=== PATIENT | female | born 1945 | race Two or more races ===

== ENCOUNTER 2023-06-17 18:30 | Emergency (ER) | payer OTHER ==
[~2023-06-17] VITALS: Ht 162.6 cm; Wt 82.6 kg
[2023-06-17] MEDS ORDERED: LEVOTHYROXINE25 MCG PO (18:57)
[2023-06-17] MEDS ORDERED: GLIMEPIRIDE1 M1 PO (18:57)
[2023-06-17] MEDS ORDERED: TRADJENTA5 MG PO (18:57)
[2023-06-17] MEDS ORDERED: AMLODIPINE-OLM1 EAC2 (18:58)
[2023-06-17] MEDS ORDERED: COZAAR25 MG PO (18:58)
[2023-06-17] MEDS ORDERED: EZALLOR SPRINKLE5 MG PO (18:58)
[2023-06-17] MEDS ORDERED: ONDANSETRON HCL 2 MG/ML VIAL IV ONE (19:15)
[2023-06-17] MEDS ORDERED: MECLIZINE HCL 25 MG TABLET PO ONE (19:15)
[2023-06-17] MEDS ORDERED: 0.9 % SODIUM CHLORIDE 500 ML IV ONE (19:15)
[2023-06-17] MEDS ORDERED: FAMOTIDINE/PF 20 MG/2 ML VIAL IV ONE (19:15)
[2023-06-17 19:41] LABS: HEMATOCRIT 42.9 % (36.0-45.00); HEMOGLOBIN 14.2 g/dL (12.0-15.00); MEAN CELL VOLUME 78.4 fL (80.00-100.00); MEAN CORPUSCULAR HEMOGLOBIN 25.8 pg (27.00-32.0); PLATELET COUNT 173 K/uL (150-450); RED BLOOD COUNT 5.48 M/uL (4.00-6.00); RED CELL DISTRIBUTION WIDTH 15.3 % (11.5-14.5)
[2023-06-17 20:13] LABS: ALBUMIN 3.8 gm/dL (3.4-5.0); BILIRUBIN TOTAL 0.57 mg/dL (0.3-1.2); CALCIUM 9.7 mg/dL (8.5-10.1); CREATININE SERUM 1.18 mg/dL (0.55-1.02); GFR 44.07; GLOBULINA 4.3 G/DL (2.4-3.5); POTASSIUM 3.86 mEq/L (3.5-5.1); TOTAL PROTEIN 8.1 gm/dL (6.4-8.2)
[2023-06-17 21:54] LABS: PH,URINE 6.5 (5.0-8.0); URINE APPEARANCE Clear; URINE BILIRRUBIN Negative (NEGATIVE); URINE BLOOD Negative; URINE COLOR Yellow; URINE GLUCOSE Negative (NEGATIVE); URINE LEUKOCYTE Negative; URINE NITRATE Negative; URINE PROTEIN Negative (NEGATIVE)
[2023-06-17 22:00] LABS: URINE EPITHELIAL CELLS 27.6 uL (0.0-38.8); URINE RBC 15.3 uL (0.0-20.8); URINE WBC 30.6 uL (0.0-23.2)
[2023-06-17 22:22] LABS: URINE CRYSTALS NEGATIVE /HPF
[2023-06-17] MEDS ORDERED: DUI500 PO (23:11)
[2023-06-17] MEDS ORDERED: ANTIVERT25 M2 PO (23:11)
== END 2023-06-17 23:36 ==
LOC: ER 18:30
PROVIDERS: Nurse Practitioner Family
DX: R42 Dizziness and giddiness (principal); R11.10 Vomiting, unspecified; I10 Essential (primary) hypertension; E03.8 Other specified hypothyroidism; E11.9 Type 2 diabetes mellitus without complications; Z79.4 Long term (current) use of insulin
CPT/HCPCS: 36415; 70450; 93005; 96365; 96366; 99284; J2405; J3490; J7042

== ENCOUNTER 2025-01-08 22:19 | Emergency (ER) | payer OTHER ==
[~2025-01-08] VITALS: Ht 162.6 cm; Wt 83.0 kg
[~2025-01-08 22:19] MED LIST: AMLODIPINE-OLM1 EAC2; ANTIVERT25 M2 PO; COZAAR25 MG PO; DUI500 PO; EZALLOR SPRINKLE5 MG PO; GLIMEPIRIDE1 M1 PO; LEVOTHYROXINE25 MCG PO; TRADJENTA5 MG PO
[2025-01-08 22:46] VITALS: BP 145/79; O2SAT 99
[2025-01-08] MEDS ORDERED: ACETAMINOPHEN 500 MG GEL..CAP PO STA (23:21)
[2025-01-09] MEDS ORDERED: TYLENOL EXTRA500 MG PO (01:54)
== END 2025-01-09 02:11 ==
LOC: ER 22:19
DX: S09.8XXA Other specified injuries of head, initial encounter (principal); W05.0XXA Fall from non-moving wheelchair, initial encounter; Y93.89 Activity, other specified; Y92.59 Other trade areas as the place of occurrence of the external cause; E03.8 Other specified hypothyroidism; I10 Essential (primary) hypertension; E11.9 Type 2 diabetes mellitus without complications; Z79.84 Long term (current) use of oral hypoglycemic drugs